=== PATIENT | female | born 1995 | race Caucasian/White ===

== ENCOUNTER 2023-08-07 12:18 | Outpatient (OUT) | payer OTHER, SELFPAY ==
--- NOTE | 2023-08-07 12:21 | US_ITS ---
[address] [address] Patient Name: TEMO JANE MRN: [id number] date: 1995 Sex: F Assigned Patient Location: US Current Patient Location: US Accession/Order Number: [id number] Exam Date: 08/07/2023 12:21 Report Date: 08/07/2023 17:17 At the request of: VAIBHAV MENCHACA Procedure: US OB transvaginal EXAMINATION: US OB transvaginal HISTORY: MISSED MENSES COMPARISON: No relevant comparison available. FINDINGS: Cardoso intrauterine gestation Gestational sac: 3.5 cm, 8 weeks 5 days CRL: 2.41 cm, 9 weeks 1 day Yolk sac: 4.8 mm Heart rate: 174 bpm The uterus is normal, anteverted, anteflexed The ovaries are normal. Cervix: Closed, 4.4 cm Clinical age: 9 weeks 2 days Clinical ZAHIRA: 03/09/2024 Ultrasound age: 9 weeks 1 day Ultrasound ZAHIRA: 03/10/2024 US/US OB transvaginal IMPRESSION: Viable cardoso intrauterine gestation measuring 9 weeks 1 day Electronically authenticated by: RICHARD HOLLOWAY Date: 08/07/2023 17:17
== END 2023-08-07 12:19 | disposition home or self-care (01) ==
PROVIDERS: Visit Provider Obstetrics & Gynecology
DX: Z34.91 Encounter for supervision of normal pregnancy, unspecified, first trimester (principal)
CPT/HCPCS: 76817

== ENCOUNTER 2023-09-01 10:54 | Outpatient (OUT) | payer OTHER, SELFPAY ==
[2023-09-01 11:30] LABS: Basophils Absolute Auto 0.1 10^3/uL (0.0-0.1); Basophils Percent Auto 0.5 % (0.2-2.0); Eosinophils Absolute Auto 0.2 10^3/uL (0.0-0.7); Hematocrit 37.4 % (36.0-48.0); Hemoglobin 12.9 g/dL (12.0-16.0); Immature Granulocytes Abs Auto 0.05 10^3/uL (0.00-0.03); Immature Granulocytes Pct Auto 0.5 % (0.0-0.5); Lymphocytes Absolute Auto 2.6 10^3/uL (1.2-3.8); Lymphocytes Percent Auto 23.7 % (20.5-60.0); Mean Corpuscular HGB Conc 34.5 g/dL (29.9-35.2); Mean Corpuscular Hemoglobin 31.1 pg (26.7-34.0); Mean Corpuscular Volume 90.1 fL (81.0-99.0); Mean Platelet Volume 10.3 fL (9.5-13.5); Monocytes Absolute Auto 0.7 10^3/uL (0.3-0.8); Neutrophils Absolute Auto 7.4 10^3/uL (1.4-6.5); Neutrophils Percent Auto 67.3 % (43.0-75.0); Platelet Count 257 10^3/uL (150-450); Red Blood Count 4.15 10^6/uL (4.20-5.40); Red Cell Distribution Width 12.2 % (11.0-15.0); White Blood Count 10.9 10^3/uL (4.0-11.0)
[2023-09-01 11:44] LABS: Estimated Average Glucose 91 mg/dL; Glycohemoglobin A1C 4.8 % (4.5-6.2)
[2023-09-01 12:01] LABS: Thyroid Stimulating Hormone 0.518 uIU/mL (0.358-3.740)
[2023-09-02 06:18] LABS: HBsAg Screen Negative (Negative); HCV Ab Non Reactive (Non Reactive); HIV Ab/p24 Ag Screen Non Reactive (Non Reactive); Rubella Antibodies, IgG 7.33 index (Immune >0.99)
[2023-09-02 11:08] LABS: Rapid Plasma Reagin, Quant Non Reactive titer (NonRea<1:1)
== END 2023-09-01 10:55 | disposition home or self-care (01) ==
LOC: LAB 10:56
PROVIDERS: Visit Provider Obstetrics & Gynecology
DX: N92.6 Irregular menstruation, unspecified (principal)
CPT/HCPCS: 36415; 83036; 84443; 85025; 86592; 86762; 86803; 86850; 86900; 86901; 87086; 87340; 87389

== ENCOUNTER 2023-09-11 11:41 | Outpatient (OUT) | payer OTHER, SELFPAY | END 2023-09-11 11:42 | disposition home or self-care (01) | PROVIDERS: Visit Provider Obstetrics & Gynecology | DX: N92.6 Irregular menstruation, unspecified (principal) | CPT/HCPCS: 36415; 86644; 86645; 86850; 86870 ==

== ENCOUNTER 2023-09-11 12:24 | Outpatient (OUT) | payer OTHER, SELFPAY ==
[2023-09-12 09:11] LABS: Cytomegalovirus (CMV) Ab, IgM <30.0 AU/mL (0.0-29.9)
== END 2023-09-11 12:25 | disposition home or self-care (01) ==
LOC: LAB 12:25
PROVIDERS: Visit Provider Obstetrics & Gynecology
DX: N92.6 Irregular menstruation, unspecified (principal); Z20.828 Contact with and (suspected) exposure to other viral communicable diseases
CPT/HCPCS: 36415; 86644; 86645